=== PATIENT | male | born 1965 | race Caucasian/White ===

== ENCOUNTER 2020-07-07 00:22 | Emergency (ER) | payer OTHER ==
[~2020-07-07 00:22] MED LIST: CHOLESTROL MED PO; HYDROXYZINE PAM50 M1 PO; K-DUR20 MEQ PO; LEXAPRO10 MG PO; LOPRESSOR25 MG PO; METOPROLOL SUCC50 MG PO; XANAX0.5 MG PO
== END 2020-07-07 02:33 | disposition home or self-care (01) ==
LOC: FER 00:22
DX: S61.215A Laceration without foreign body of left ring finger without damage to nail, initial encounter (principal); S61.217A Laceration without foreign body of left little finger without damage to nail, initial encounter; I10 Essential (primary) hypertension; F17.200 Nicotine dependence, unspecified, uncomplicated; W26.0XXA Contact with knife, initial encounter; Y92.89 Other specified places as the place of occurrence of the external cause; Y99.0 Civilian activity done for income or pay